=== PATIENT | female | born 1970 | race Caucasian/White ===

== ENCOUNTER 2022-09-13 13:00 | Emergency (ER) | payer OTHER, SELFPAY ==
--- NOTE | ~2022-09-13 | CT_ITS ---
EXAMINATION: CT ABDOMEN AND PELVIS WITHOUT CONTRAST CLINICAL INFORMATION: Abdominal pain COMPARISON: None available. TECHNIQUE: Multidetector volumetric imaging was performed from the superior aspect of the liver through the pubic symphysis. Sagittal and coronal reformatted images were obtained on the technologist's workstation. This CT examination was performed using dose optimization techniques as appropriate, variously including the following: *Automated exposure control *Adjustment of mA and/or kV according to patient size (this includes techniques or standardized protocols for targeted exams where dose is matched to indication/reason for exam; i.e. extremities or head) *Use of iterative reconstruction technique DLP: 397 mGy-cm FINDINGS: LUNG BASES: The visualized lung bases are unremarkable. LIVER, GALLBLADDER, AND BILIARY TREE: The liver is normal in size, shape, and attenuation. No focal hepatic lesion or biliary ductal dilatation is present. The gallbladder is unremarkable with no evidence of radiopaque gallstones, gallbladder wall thickening, or obvious pericholecystic inflammatory changes. PANCREAS: Unremarkable. SPLEEN: Unremarkable. ADRENAL GLANDS: Unremarkable. KIDNEYS AND URETERS: The kidneys are normal in size, shape, and attenuation. No hydronephrosis, hydroureter, or calculi seen. No perinephric stranding. BLADDER: Unremarkable. GASTROINTESTINAL TRACT: The small and large bowel are unremarkable. The appendix is nonvisualized. ABDOMINAL WALL: No significant hernia is appreciated. LYMPH NODES: Normal. VASCULAR: Unremarkable. PELVIC VISCERA: Unremarkable. OSSEOUS STRUCTURES: Unremarkable. CT/CT abdomen pelvis wo IV con IMPRESSION: No significant abnormality. Fleischner guidelines were followed.
[2022-09-13 13:27] LABS: MANUAL DIFF FLAG NO
[2022-09-13 13:29] LABS: Basophils Percent Auto 0.2 % (0-2); Eosinophils Absolute Auto 0.1 X10*3/uL (0.0-0.4); Eosinophils Percent Auto 0.5 % (0-4); Hematocrit 37.9 % (37.0-47.0); Hemoglobin 12.7 g/dl (12.0-16.0); Imm Gran Abs Auto 0.07 X10*3/uL (0.00-0.03); Imm Gran Pct Auto 0.5 % (0.0-0.4); Lymphocytes Absolute Auto 1.8 X10*3/uL (1.2-4.9); Lymphocytes Percent Auto 13.1 % (20-40); Mean Corpuscular HGB Conc 33.5 g/dl (31.0-35.0); Mean Corpuscular Hemoglobin 32.1 pg (27.0-33.0); Mean Corpuscular Volume 95.7 fL (80.0-98.0); Mean Platelet Volume 10.2 fL (9.4-12.3); Monocytes Absolute Auto 1.1 X10*3/uL (0.1-1.2); Monocytes Percent Auto 7.6 % (2-11); Neutrophils Percent Auto 78.1 % (45-73); Platelet Count 223 X10*3/uL (160-400); Red Blood Count 3.96 X10*6/uL (4.20-5.50); Red Cell Distribution Width 12.2 % (11.0-16.0)
[2022-09-13 13:41] VITALS: BP 135/87; PULSE 85; RESP 18; TEMP 36.7; O2SAT 98; BMI 21.6
--- NOTE | 2022-09-13 13:41 | ED_ITS ---
HPI - Abdominal Pain General Chief Complaint: Abdominal Pain <MANOJ Horvath - Last Filed: 09/13/22 19:35> Stated Complaint: Abd pain sent from urgent care <MANOJ Horvath - Last Filed: 09/13/22 19:35> Time Seen by Provider: 09/13/22 20:09 <MANOJ Horvath - Last Filed: 09/13/22 19:35> Source: patient, RN notes reviewed and old records reviewed <Collins Arevalo - Last Filed: 09/13/22 22:24> Mode of arrival: ambulatory <Collins Arevalo - Last Filed: 09/13/22 22:24> Limitations: no limitations <Collins Arevalo - Last Filed: 09/13/22 22:24> History of Present Illness HPI narrative: 52-year-old female presents for evaluation of abdominal pain. Patient reports that 3 days ago she had 1 or 2 episodes of vomiting. She states she developed severe left lower abdominal pain She reports diarrhea and there is bright red blood mixed in with the diarrhea Denies any history of colitis/diverticulitis. Her surgical history is significant only for a remote hysterectomy Currently her pain is a 10/10. Patient reports that she may have had fevers on Tuesday that she had hot flashes and chills but never took her temperature No other complaints or concerns at this time. <Collins Arevalo - Last Filed: 09/13/22 22:24> Related Data Home Medications: Previous Rx's Medication Instructions Recorded amoxicillin 875 mg-potassium 1 tab PO TID #21 tabs 09/13/22 clavulanate 125 mg tablet <MANOJ Horvath - Last Filed: 09/13/22 19:35> Allergies/Adverse Reactions: Allergies Allergy/AdvReac Type Severity Reaction Status Date / Time Sulfa (Sulfonamide Allergy Unknown UPSET Unverified 02/14/20 16:34 Antibiotics) STOMACH [SULFA (SULFONAMIDE ANTIBIOTICS)] <MANOJ Horvath - Last Filed: 09/13/22 19:35> Review of Systems Constitutional: Reports as per HPI, Reports chills, Reports fatigue, Reports fever(s) and Denies headache(s) <Collins Arevalo - Last Filed: 09/13/22 22:24> Denies headache(s) <Collins Arevalo - Last Filed: 09/13/22 22:24> Cardiovascular: Denies chest pain and Denies dyspnea <Collins Arevalo - Last Filed: 09/13/22 22:24> Respiratory: Denies cough and Denies dyspnea <Collins Arevalo - Last Filed: 09/13/22 22:24> Gastrointestinal: Reports abdominal pain, Reports hematochezia, Denies constipation, Reports diarrhea, Reports nausea, Reports vomiting and Denies hematemesis <Collins Arevalo - Last Filed: 09/13/22 22:24> Genitourinary: Denies dysuria <Collins Arevalo - Last Filed: 09/13/22 22:24> Denies headache(s) and Denies focal weakness <Collins Arevalo - Last Filed: 09/13/22 22:24> Endocrine: Reports fatigue <Collins Arevalo - Last Filed: 09/13/22 22:24> [facility] Social History Social History: Social History Smoked in Last 30 Days: Yes Use of substances other than those prescribed or required for medical reasons: No Advance Directives: No Advance Directives Information Provided: Yes <MANOJ Horvath - Last Filed: 09/13/22 19:35> Physical Exam ED Vital Signs: Vital Signs - 24 hr 09/13/22 13:41 09/13/22 19:50 Temperature 98.0 F 98.3 F Pulse Rate 85 60 Respiratory Rate 18 16 Blood Pressure 135/87 156/90 H Pulse Oximetry 98 96 Oxygen Delivery Method Room Air Room Air BMI result Body Mass Index 21.6 <MANOJ Horvath - Last Filed: 09/13/22 19:35> Vital Signs - 24 hr 09/13/22 13:41 09/13/22 19:50 Temperature 98.0 F 98.3 F Pulse Rate 85 60 Respiratory Rate 18 16 Blood Pressure 135/87 156/90 H Pulse Oximetry 98 96 Oxygen Delivery Method Room Air Room Air BMI result Body Mass Index 21.6 <Collins Arevalo - Last Filed: 09/13/22 22:24> Const General: healthy appearing, comfortable, no acute distress, alert and awake <Collins Arevalo - Last Filed: 09/13/22 22:24> Nutritional Appearance: well nourished <Collins - Last Filed: 09/13/22 22:24> Orientation/consciousness: patient oriented x3 <Collins Last Filed: 09/13/22 22:24> HENMT Head: Yes normocephalic and Yes atraumatic <Collins - Last Filed: 08/28 12/19 22:24> Throat: Yes posterior oropharynx normal < - Last Filed: 09/13/22 22:24> Eyes Eyelids: Yes eyelids normal < - Last Filed: 09/13/22 22:24> Conjunctivae: conjunctivae normal < - Last Filed: 09/13/22 22:24> Sclerae: sclerae normal < - Last Filed: 09/13/22 22:24> Corneas: corneas normal < - Last Filed: 09/13/22 22:24> Pupils: Equal, round and reactive pupils present < - Last Filed: 09/13/22 22:24> EOM: EOMs intact bilaterally <Collins - Last Filed: 09/13/22 22:24> Neck Neck: Yes full ROM <Collins Last Filed: 09/13/22 22:24> Resp Effort & Inspection: normal respiratory effort, able to speak in complete sentences, no audible wheezes and not labored <Collins - Last Filed: 09/13/22 22:24> Auscultation: clear to auscultation bilaterally < - Last Filed: 09/13/22 22:24> Cardio Rate: regular rate < - Last Filed: 09/13/22 22:24> Rhythm: regular rhythm < Last Filed: 09/13/22 22:24> GI Inspection: No distended < - Last Filed: 09/13/22 22:24> Palpation (GI): Soft to palpation, not firm, Tenderness to palpation present (GI) in the LLQ, Guarding due to palpation present (GI) (Guarding to left lower quadrant without rebound tenderness) in the LLQ and not rigid <Collins Arevalo - Last Filed: 09/13/22 22:24> Skin General skin exam: no rashes or lesions noted and elasticity normal <Collins SheldonHenry - Last Filed: 09/13/22 22:24> Neuro General: patient oriented x3 <Collins PitoBeltrami - Last Filed: 09/13/22 22:24> Cranial nerves: Yes Equal, round and reactive pupils present and Yes Bilaterally intact EOM present <Collins PitoHenry - Last Filed: 09/13/22 22:24> Cognition (Neuro): normal cognition <Collins O'Beltrami - Last Filed: 09/13/22 22:24> Extrem Other: Moving all extremities well without any obvious deformities <Collins SheldonHenry - Last Filed: 09/13/22 22:24> Course Course Course Narrative: RME - 52yo female presenting from urgent care for abdominal pain and rectal bleeding for 3 days. Patient stated she has the urge to have a bowel movement but only passes red blood. Endorses one episode of vomiting 3 days ago. Allergy to sulfa drugs. VSS in triage Plan: labs, UA <MANOJ Horvath - Last Filed: 09/13/22 19:35> Reevaluation(s) Reevaluation #1: patient reporting worsening lower abdominal pain CT abd/pelvis ordered <MANOJ Horvath - Last Filed: 09/13/22 19:35> Time: 19:35 <MANOJ Horvath - Last Filed: 09/13/22 19:35> Reevaluation #2: Patient's CT scan does not show any acute findings. However given the patient has a white count, left lower abdominal pain with bloody diarrhea, has still feels appropriate to treat for diverticulitis as her symptoms are very classic. She will follow-up with PCP and/or GI her symptoms persist after treatment. <Collnis Arevalo - Last Filed: 09/13/22 22:24> Time: 22:19 <Collins Arevalo - Last Filed: 09/13/22 22:24> Medical Decision Making Medical Decision Making MDM Narrative: [place] [id number]. Electrolytes are within normal limits, the patient is not clinically dehydrated. She has significant tenderness in left lower quadrant with reported bloody diarrhea. Most likely diverticulitis, CT scan is pending. Patient medicated with IV fluids, morphine, Zofran. <Collins Arevalo - Last Filed: 09/13/22 22:24> Differential Diagnosis Diverticulitis Complicated diverticulitis Bowel perforation Colitis Abdominal pain Gastroenteritis <Collins Arevalo - Last Filed: 09/13/22 22:24> Lab Data Result Diagrams: 09/13/22 13:21 09/13/22 13:21 <MANOJ Horvath - Last Filed: 09/13/22 19:35> Labs: Lab Results 09/13/22 09/13/22 09/13/22 Range/Units 13:21 13:21 15:39 WBC 14.0 H (4.8-10.8) X10*3/uL RBC 3.96 L (4.20-5.50) X10*6/uL Hgb 12.7 (12.0-16.0) g/dl Hct 37.9 (37.0-47.0) % MCV 95.7 (80.0-98.0) fL MCH 32.1 (27.0-33.0) pg MCHC 33.5 (31.0-35.0) g/dl RDW 12.2 (11.0-16.0) % Plt Count 223 (160-400) X10*3/uL MPV 10.2 (9.4-12.3) fL Immature Gran % (Auto) 0.5 H (0.0-0.4) % Neut % (Auto) 78.1 H (45-73) % Lymph % (Auto) 13.1 L (20-40) % [place] % (Auto) 7.6 (2-11) % Eos % (Auto) 0.5 (0-4) % Baso % (Auto) 0.2 (0-2) % Lymph # (Auto) 1.8 (1.2-4.9) X10*3/uL [place] # (Auto) 1.1 (0.1-1.2) X10*3/uL Eos # (Auto) 0.1 (0.0-0.4) X10*3/uL Baso # (Auto) 0.0 (0.0-0.2) X10*3/uL Abs Immat Gran (auto) 0.07 H (0.00-0.03) X10*3/uL Absolute Neuts (auto) 11.0 H (2.0-8.3) x10*3/uL Absolute Nucleated RBC 0.000 (0.0-0.012) X10*3/uL Nucleated RBC % (auto) 0.0 (0.0-0.2) /100WBC Sodium 137 (135-145) mmol/L Potassium 4.2 (3.3-5.1) mmol/L Chloride 103 (96-108) mmol/L Carbon Dioxide 24 (22-29) mmol/L Anion Gap 14 (12-20) BUN 11 (9-16) mg/dL Creatinine 0.70 (0.5-1.4) mg/dL Estim Creat Clear Calc 82.6 Estimated GFR > 60 Random Glucose 106 (60-115) mg/dL Calcium 9.1 (8.4-10.2) mg/dL Magnesium 2.0 (1.6-2.6) mg/dL Total Bilirubin 0.6 (0.0-1.0) mg/dL Direct Bilirubin 0.2 (0.0-0.5) mg/dL AST 18 (5-31) U/L ALT 13 (0-31) U/L Alkaline Phosphatase 62 (39-117) U/L Total Protein 6.7 (6.5-8.0) g/dL Albumin 4.1 (3.5-5.0) g/dL Lipase 22 (8-78) U/L Urine Color Dark Yellow Urine Appearance Cloudy Urine pH 5.5 (5.0-9.0) Ur Specific [place] >= 1.030 H (1.005-1.025) Urine Protein 30 (1+) H (Neg-Trace) mg/dL Urine Glucose (UA) Negative (Negative) mg/dL Urine Ketones Trace (Negative) mg/dL Urine Blood Negative (Negative) Urine Nitrite Negative (Negative) Ur Leukocyte Esterase Trace H (Negative) Urine RBC 3-5 H (0-2) /HPF Urine WBC 0-5 (0-5) /HPF Ur Squamous Epith Cells 11-20 (0-2) /HPF Urine Bacteria 1+ (None Seen) Hyaline Casts >20 (0-2) /LPF <MANOJ Horvath - Last Filed: 09/13/22 19:35> Lab Results 09/13/22 09/13/22 09/13/22 Range/Units 13:21 13:21 15:39 WBC 14.0 H (4.8-10.8) X10*3/uL RBC 3.96 L (4.20-5.50) X10*6/uL Hgb 12.7 (12.0-16.0) g/dl Hct 37.9 (37.0-47.0) % MCV 95.7 (80.0-98.0) fL MCH 32.1 (27.0-33.0) pg MCHC 33.5 (31.0-35.0) g/dl RDW 12.2 (11.0-16.0) % Plt Count 223 (160-400) X10*3/uL MPV 10.2 (9.4-12.3) fL Immature Gran % (Auto) 0.5 H (0.0-0.4) % Neut % (Auto) 78.1 H (45-73) % Lymph % (Auto) 13.1 L (20-40) % [place] % (Auto) 7.6 (2-11) % Eos % (Auto) 0.5 (0-4) % Baso % (Auto) 0.2 (0-2) % Lymph # (Auto) 1.8 (1.2-4.9) X10*3/uL [place] # (Auto) 1.1 (0.1-1.2) X10*3/uL Eos # (Auto) 0.1 (0.0-0.4) X10*3/uL Baso # (Auto) 0.0 (0.0-0.2) X10*3/uL Abs Immat Gran (auto) 0.07 H (0.00-0.03) X10*3/uL Absolute Neuts (auto) 11.0 H (2.0-8.3) x10*3/uL Absolute Nucleated RBC 0.000 (0.0-0.012) X10*3/uL Nucleated RBC % (auto) 0.0 (0.0-0.2) /100WBC Sodium 137 (135-145) mmol/L Potassium 4.2 (3.3-5.1) mmol/L Chloride 103 (96-108) mmol/L Carbon Dioxide 24 (22-29) mmol/L Anion Gap 14 (12-20) BUN 11 (9-16) mg/dL Creatinine 0.70 (0.5-1.4) mg/dL Estim Creat Clear Calc 82.6 Estimated GFR > 60 Random Glucose 106 (60-115) mg/dL Calcium 9.1 (8.4-10.2) mg/dL Magnesium 2.0 (1.6-2.6) mg/dL Total Bilirubin 0.6 (0.0-1.0) mg/dL Direct Bilirubin 0.2 (0.0-0.5) mg/dL AST 18 (5-31) U/L ALT 13 (0-31) U/L Alkaline Phosphatase 62 (39-117) U/L Total Protein 6.7 (6.5-8.0) g/dL Albumin 4.1 (3.5-5.0) g/dL Lipase 22 (8-78) U/L Urine Color Dark Yellow Urine Appearance Cloudy Urine pH 5.5 (5.0-9.0) Ur Specific [place] >= 1.030 H (1.005-1.025) Urine Protein 30 (1+) H (Neg-Trace) mg/dL Urine Glucose (UA) Negative (Negative) mg/dL Urine Ketones Trace (Negative) mg/dL Urine Blood Negative (Negative) Urine Nitrite Negative (Negative) Ur Leukocyte Esterase Trace H (Negative) Urine RBC 3-5 H (0-2) /HPF Urine WBC 0-5 (0-5) /HPF Ur Squamous Epith Cells 11-20 (0-2) /HPF Urine Bacteria 1+ (None Seen) Hyaline Casts >20 (0-2) /LPF <Collins Arevalo - Last Filed: 09/13/22 22:24> Medications Administered Discontinued Medications Generic Name Dose Route Start Last Admin Trade Name Freq PRN Reason Stop Dose Admin Sodium Chloride 1,000 mls @ 999 mls/hr 09/13/22 20:30 09/13/22 20:47 Ns IV 09/13/22 21:30 999 mls/hr .Q1H1M DC Administration Morphine Sulfate 4 mg 09/13/22 20:24 09/13/22 20:47 Morphine Sulfate 4 Mg/Ml Cartridge IVPUSH 09/13/22 20:25 4 mg ONCE ONE Administration Protocol Ondansetron HCl 4 mg 09/13/22 20:24 09/13/22 20:47 Ondansetron Hcl 4 Mg/2 Ml Vial IVPUSH 09/13/22 20:25 4 mg ONCE ONE Administration <MANOJ Horvath - Last Filed: 09/13/22 19:35> Medications Administered Discontinued Medications Generic Name Dose Route Start Last Admin Trade Name Giles PRN Reason Stop Dose Admin Sodium Chloride 1,000 mls @ 999 mls/hr 09/13/22 20:30 09/13/22 20:47 Ns IV 09/13/22 21:30 999 mls/hr .Q1H1M DC Administration Morphine Sulfate 4 mg 09/13/22 20:24 09/13/22 20:47 Morphine Sulfate 4 Mg/Ml Cartridge IVPUSH 09/13/22 20:25 4 mg ONCE ONE Administration Protocol Ondansetron HCl 4 mg 09/13/22 20:24 09/13/22 20:47 Ondansetron Hcl 4 Mg/2 Ml Vial IVPUSH 09/13/22 20:25 4 mg ONCE ONE Administration <Collins Arevalo - Last Filed: 09/13/22 22:24> Discharge Plan Discharge Clinical Impression: Abdominal pain <MANOJ Horvath - Last Filed: 09/13/22 19:35> Patient Disposition: Home, Self-Care <MANOJ Horvath - Last Filed: 09/13/22 19:35> Instructions: Diverticulitis (ED) <MANOJ Horvath - Last Filed: 09/13/22 19:35> Additional Instructions: Your CT scan did not show any obvious evidence of diverticulitis. Given her significant pain, elevated white blood cell count and bloody diarrhea I feels appropriate to treat you regardless Take the Augmentin twice daily for the next 7 days Continue on a liquid diet for least the next 2 days or until her pain resolves Follow-up with your primary doctor or return for any new or worsening symptoms <MANOJ Horvath - Last Filed: 09/13/22 19:35> Prescriptions: New amoxicillin-pot clavulanate 875-125 mg tablet 1 tab PO TID Qty: 21 0RF <MANOJ Horvath - Last Filed: 09/13/22 19:35>
[2022-09-13 13:48] LABS: Alanine Aminotransferase 13 U/L (0-31); Albumin Level 4.1 g/dL (3.5-5.0); Alkaline Phosphatase 62 U/L (39-117); Anion Gap 14 (12-20); Aspartate Amino Transferase 18 U/L (5-31); Bilirubin Direct 0.2 mg/dL (0.0-0.5); Bilirubin Total 0.6 mg/dL (0.0-1.0); Blood Urea Nitrogen 11 mg/dL (9-16); Calcium 9.1 mg/dL (8.4-10.2); Carbon Dioxide 24 mmol/L (22-29); Chloride 103 mmol/L (96-108); Creatinine Clr Calc Pharmacy 82.6; Estimated Glomerular Filt Rate > 60; Glucose Random 106 mg/dL (60-115); Lipase 22 U/L (8-78); Potassium 4.2 mmol/L (3.3-5.1); Sodium 137 mmol/L (135-145); Total Protein 6.7 g/dL (6.5-8.0)
[2022-09-13 15:59] LABS: Appearance Urine Cloudy; Color Urine Dark Yellow; Glucose Urine UA Negative (Negative); Leukocyte Esterase Urine Trace (Negative); Nitrite Urine Negative (Negative); PH 5.5 (5.0-9.0); Specific Gravity - Urine >= 1.030 (1.005-1.025); UMIC TRIGGER UACC YES; Urine Blood Negative (Negative); Urine Ketones Trace mg/dL (Negative); Urine Protein 30 (1+) mg/dL (Neg-Trace)
[2022-09-13 16:18] LABS: Bacteria Urine 1+ (None Seen); Hyaline Casts Urine >20 /LPF (0-2); WBC Urine 0-5 /HPF (0-5)
[2022-09-13 19:50] VITALS: BP 156/90; PULSE 60; RESP 16; TEMP 36.8; O2SAT 96
[2022-09-13] MEDS: Morphine Sulfate 4 MG/ML CARTRIDGE IVPUSH (20:47)
[2022-09-13] MEDS: ondansetron HCL 4 MG/2 ML VIAL IVPUSH (20:47)
[2022-09-13] MEDS: 0.9 % Sodium Chloride 1,000 ML 999 ML IV (20:47)
[2022-09-13] MEDS: Amoxicillin/Potassium Clav 875 MG TABLET PO (22:40)
== END 2022-09-13 22:49 | disposition home or self-care (01) ==
PROVIDERS: Physician Assistant; Emergency Provider Emergency Medicine; PCP Internal Medicine
DX: R10.32 Left lower quadrant pain (principal)
CPT/HCPCS: 36415; 74176; 80048; 80076; 81001; 81003; 83690; 83735; 85025; 96361; 96374; 96375; 99284; J2270; J2405

== ENCOUNTER 2025-01-22 08:45 | Outpatient (AMB) | payer OTHER, SELFPAY ==
--- NOTE | 2025-01-22 08:58 | A.OFFVIS_ITS ---
Intake Visit Reasons: BOTOX 200U Allergies Sulfa (Sulfonamide Antibiotics) (SULFA (SULFONAMIDE ANTIBIOTICS)) Allergy (Unknown, Unverified 02/14/20 16:34) UPSET STOMACH Medication List - Last Reconciled 01/22/25 by Juan C Leach MD lisinopril 20 mg PO DAILY loratadine 10 mg PO DAILY onabotulinumtoxinA (Botox) 200 units IM [id number] oxcarbazepine 900 mg PO BEDTIME rizatriptan 10 mg PO PRN sumatriptan succinate 100 mg PO Q2-4H PRN tizanidine 4 mg PO BEDTIME PRN HPI Comments Details: She is here for 3 monthly Botox injection for chronic migraine. She has a history of migraines starting her on age 10. Most of the time on the left side or on the periorbital area, going to the back of the skull base. She may get a visual aura. Lites appear to get bright for about 30 min. before some of the headaches. The headache can be dolled throbbing, sharp in quality and frequently she'll get nausea with rare vomiting photosensitivity and slight noise sensitivity. It doesn't change with head movement or activity. Sometimes she also gets lightheaded. In the past she's been treated with sumatriptan Zomig, amitriptyline, topiramate, valproate, propranolol without benefit. She uses a combination of Maxalt and sumatriptan for rescue therapy using sumatriptan at night and Maxalt during the day. She's been on Botox treatments for about 15 years he and has noted day. 50% reduction by taking the Botox. Since starting Botox a headache frequency is down to about 9-10 a month with the severity of 6 on a scale of 10. Currently , her Sumatriptan works for her 6-7 migraines a month with Botox. [facility], [facility] Medical History (Updated 01/22/25 @ 09:21 by Juan C Leach MD) Chronic migraine without aura Review of Systems Const Details: Sleep:? Difficulty getting to sleepdenies.? Difficulty maintaining sleepdenies?.? Urge to move legsdenies.? Teeth grindingadmits.? Shouting or Kicking during sleep admits.? Abnormal behavior during sleepadmits.? Excessive sleepadmits.? Snoring denies.? Daytime sleepinessdenies. ???General/Constitutional:? Change in appetitedenies.? Chillsdenies.? Fatigueadmits.? Feverdenies.? Weight gaindenies.? Weight lossdenies. ???Ophthalmologic:? Blurred visionadmits.? Diminished visual acuitydenies. ???ENT:? Stuffinessadmits.? Decreased hearingdenies.? Dry mouthdenies.? Ear paindenies.? Nosebleeddenies.? Ringing in the earsadmits.? Sinus paindenies.? Sore throat denies.? Swollen glandsdenies. ???Endocrine:? Cold intolerancedenies.? Excessive thirstdenies.? Frequent urinationdenies.? Heat intolerancedenies. ???Respiratory:? Shortness of breathdenies.? Chest paindenies.? Coughdenies. ???Breast:? Breast lumpdenies.? Nipple dischargedenies. ???Cardiovascular:? Chest pain at restdenies.? Chest pain with exertiondenies.? Claudicationdenies .? Dizzinessdenies.? Fluid accumulation in the legsdenies.? Irregular heartbeat denies.? Palpitationsadmits. ???Gastrointestinal:? Abdominal paindenies.? Constipationadmits.? Diarrheaadmits.? Difficulty swallowingdenies.? Heartburnadmits.? Nauseadenies.? Rectal bleedingdenies. ???Hematology:? Easy bruisingadmits.? Prolonged bleedingdenies. ???Genitourinary:? Frequent urinationadmits.? Urgencyadmits.? Incontinencedenies.? Erectile Dysfunctiondenies. ???Musculoskeletal:? Neck painadmits.? Back painadmits.? Muscle achesadmits.? Painful jointsadmits.? Sciaticadenies.? Weaknessdenies. ???Podiatric:? Difficulty walkingdenies.? Foot numbnessdenies. ???Neurologic:? Difficulty swallowingdenies.? Balance difficultyadmits.? Coordinationnormal.? Difficulty speakingadmits.? Dizzinessadmits.? Faintingdenies.? Gait abnormality denies.? Headachethat is chronic.? Loss of strengthdenies.? Loss of use of extremitydenies.? Low back paindenies.? Memory lossadmits.? Seizuresdenies.? Ticsdenies.? Tingling/Numbnessdenies.? Transient loss of visiondenies.? Tremor denies. ???Psychiatric:? Anxietyadmits.? Auditory/visual hallucinationsdenies.? Delusionsdenies.? Depressed moodadmits.? Stressorsadmits.? Substance abusedenies.? Suicidal thoughtsdenies. Physical Exam Neuro Other: Neurological: Abnormal neurological findings:??none.?Mental Status:??alert and oriented X 3,?Normal attention, orientation, memory and affect.?Cranial Nerves:??Pupils are equal, round and reactive to light. Fundoscopy shows normal disc bilaterally. External occular muscles are intact. Visual jefferson are full, no ptosis. Face is symmetrical, no facial weakness or droop. Facial sensations are normal. Tongue protrudes in midline. Palate elevates symmetrically. Shoulder shrugging is normal..?Motor Examination:??Normal muscle tone, bulk and strength,?No atrophy or fasciculations,?No drift of the extended upper extremities,?Deep tendon reflexes are 2+?,?Plantars are flexor?.?Straight Leg Raising:??90 degrees.?Sensory Exam:??Normal light touch, temperature, pinprick, vibration and joint-position sensations?,?Rhomberg sign is absent.?Coordination:??no ataxia,?no titubation,?uasmun-kf-lcew, fdvr-pcex-twfd test and rapid alternating movements were normal.?Gait Exam:??Within normal limits.?Cerebellar Signs:??Hiedxi-md-jqbi and gool-ny-gczm is normal,?no dysdiadochokinesia?.?Extrapyramidal System:??No tremor, rigidity with normal facial expressions,?No bradykinesia, no bradyphrenia. Normal arm swing and posture. No propulsion or retropulsion.?Speech:??Normal,?no dysphasia or dysarthria..? Mini Mental Status Exam: Level of Consciousness:??Alert.?Orientation:??Knows correct year, month, date, day and season,?Knows correct city, county and state. Knows correct location and floor.?Registration:??Able to register 3 objects.?Attention:??Serial 7's perfo rmed accurately.?Recall:??Able to recall 3 out of 3 objects.?Language:??Normal spontaneous speech, fluency, repetition,naming, comprehension, reading and writing.?Total Score:??30/30.? Office Procedures Botulinum toxin Injection Details: Botulinum toxin: Consent:?After informed consent was obtained explaining risks, benefits, side- effects and alternatives, under asepctic precautions, the following areas were prepped and injected according to the following protocol. Prep: 200 units?Botulinum Toxin, lot [id number] , Exp. : , serial # [id number] was reconstituted in the usual manner with preservative-free normal saline. Muscles & Units Injected:?200 units of Botox were injected using 4-5 units in each site in the Procerus, Rubber Production Machine Operator, 4 sites in the frontalis muscle bilaterally, 4 sites in the temporalis muscles bilaterally, 2 sites in the o ccipitalis bilaterally , and paraspinal cervical muscles and the bilateral ?trapezius.? The patient tolerated the procedure well.?_. Post-Procedure?: The patient tolerated the procedure well. There was no blood loss or adverse effect. The patient will make a follow-up appointment in 3-4 weeks. 39965 - Migraine (Botulinum toxin: Consent After informed consent was obtained explaining risks, benefits, side-effects and alternatives, under aspectic precautions, the following areas were prepped and injected according to the following protocol. Prep 200 units Botulinum Toxin lot #[id number] , serial number [id number]) Procedure code (CPT) selection complete Assessment & Plan Assessment & Plan (1) Chronic migraine without aura: Code(s): G43.709 - Chronic migraine without aura, not intractable, without status migrainosus Category: Medical Plan Continue current meds. Add Emgality 120mg inj q4 weeks Medications: New sumatriptan succinate do not exceed 2 doses per 24 hrs 100 mg PO Q2-4H PRN 9 tabs 6RF migraine headache 30 days galcanezumab-gnlm (Emgality Pen) 120 mg subcut QMONTH 1 mL 6RF 28 days Coding Level of Care Code Est Pt Level 4 (91164) Diagnoses Chronic migraine without aura G43.709 CPT Codes Botox Injection - Botox 3: 06004 - Migraine ([id number])
--- OUTSIDE RECORDS SUMMARY | 2025-01-22 09:00 | XMS_ITS ---
Author Name [facility] Organization Unknown Care Team Organization Name Specialty Phone Email Start Date End Da te [facility] Javier Hahn DO Primary Care 10/04/202212/28
--- OUTSIDE RECORDS SUMMARY | 2025-01-22 09:00 | XMS_ITS | Clinical Summary ---
Author Organization [address] Address [address] [facility] [place] [address] Phone Care Team Providers Care Handkerchief Folder Name Role Phone Hugo Stout MD Primary Care Provider [phone] Allergies Active Allergy Reactions Criticality Noted Date Comments Divalproex Rash 03/20/2012 Face- inflamed itchy papules on face Sulfa (Sulfonamide Antibiotics) 01/02/2006 Medications ALPRAZolam (XANAX) 0.5 mg tablet Take 1 Tab by mouth 4 times daily as needed for Anxiety. 03/14/20 19 Active cetirizine (ZyrTEC) 10 mg tablet Take 1 tablet (10 mg total) by mouth 1 (one) time each day. 09/10/19 21 Active estazolam (PROSOM) 2 mg tablet Take 1 Tab by mouth at bedtime for 30 days. 03/14/20 19 Active estradioL (ESTRACE) 1 mg tablet 05/23/20 19 Active fluticasone propionate (FLONASE) 50 mcg/actuation nasal spray 1 [place] by Nasal route 2 Times Daily. 01/01/20 23 Active SUMAtriptan (IMITREX) 50 mg tablet Take 50 mg by mouth daily as needed. May repeat dose once after 2 hours, if needed. Active sertraline (ZOLOFT) 100 mg tablet Take 2 tablets (200 mg total) by mouth 1 (one) time each day. 12/28/19 23 Active rizatriptan (MAXALT-CURTAIN SUPERVISOR) 10 mg disintegrating tablet 1 tab PO daily PRN migraine 09/09/19 23 Active OXcarbazepine (TRILEPTAL) 300 mg tablet Take 3 Tabs by mouth at bedtime. 03/14/20 19 Active gabapentin (NEURONTIN) 300 mg capsule Active sodium chloride (OCEAN) 0.65 % nasal spray Administer 1 spray into each nostril if needed for congestion. 15 mL 2 04/04/20 24 Active clonazePAM (KlonoPIN) 0.5 mg tablet TAKE 1/2 TABLET BY MOUTH 4 TIMES A DAY NEEDED FOR ANXIETY Active lisinopriL (PRINIVIL,ZESTRIL ) 20 mg tablet Take 1 tablet (20 mg total) by mouth 1 (one) time each day. 90 tablet 10/12/19 25 Active loratadine (CLARITIN) 10 mg tablet TAKE 1 TABLET BY MOUTH EVERY DAY 90 tablet 01/04/20 25 Active loratadine (CLARITIN) 10 mg tablet TAKE 1 TABLET BY MOUTH 1 TIME EACH DAY. 90 tablet 1 05/05/20 24 2024 Discontinued Active Problems Problem Noted Date Diagnosed Date Hypercholesterolemia 04/04/2024 COVID-19 virus infection 10/17/2021 Overview (02/28/2024): 5.19.22 Essential hypertension 06/05/2019 Overview (02/28/2024): On oral HRT Bipolar affective disorder in remission (CMS/[facility] V24) 12/13/2018 Low back pain 12/10/2017 Overview (02/28/2024): L5/S1 microdiscectomy by Dr. Elliott Ordonez 2014 Obsessive-compulsive disorder 04/09/2013 Carpal tunnel syndrome 05/18/2006 Cervicalgia 05/18/2006 Diverticulitis of colon without hemorrhage 05/18 Migraine 05/18/2006 Overview (02/28/2024): Receiving Botox injections per Dr. Montoya (November 2022) Immunizations Name Administration Dates Next Due Influenza Quadravalent, MDCK , 0.5ml, preservative free (Flucelvax) 6mo and older 03/03/2021 Influenza Quadravalent, MDCK , 0.5ml, with preservative (Flucelvax) 6mo and older 02/02/2018 Influenza trivalent, with pr eservative (Fluzone; Afluria) 6mo and older 02/27/2023,03/02/2022,02/22/2014 Influenza, Unspecified 02/27/2019 Pfizer SARS-CoV-2 COVID-19, mRNA, LNP-S, preservative free 05/18/2021 Td Tetanus diptheria (Tdvax) 7yo and older 05/18 Tdap Tetanus diptheria acell ular pertussis (Boostrix; Adacel) 7yo and older 06/05/2019,05/18/2006 Zoster recombinant (Shingrix ) 19yo and older 12/04/2020,08/09/2020 Surgical History Surgery Date Site/Laterality Comments HYSTERECTOMY PROCEDURE: HISTORICAL HYSTERECTOMY; COMMENT: ELLEN BSO CARPAL TUNNEL RELEASE PROCEDURE: AL NEUROPLASTY &/TRANSPOS MEDIAN NRV CARPAL TUNNE COLONOSCOPY PROCEDURE: HISTORICAL COLONOSCOPY; COMMENT: normal mar 2011 dr vargas OTHER SURGICAL HISTORY 10/22/2014 PROCEDURE: AL NJX AA&/STRD TFRML EPI LUMBAR/SACRAL 1 LEVEL; COMMENT: STEROID INJ; [facility] OTHER SURGICAL HISTORY PROCEDURE: DISKECTOMY LUMBAR SINGLE SP; COMMENT: L5/S1, Dr. Ordonez [facility], 2014 OTHER SURGICAL HISTORY PROCEDURE: DISKECTOMY LUMBAR ADDTNL SP; COMMENT: 2014, [facility], Dr. Elliott Ordonez. L5/S1 Medical History Medical History Date Comments Carpal tunnel syndrome 05/18/2006 DX:Carpal tunnel syndrome Migraine with aura, without mention of intractable migraine without mention of status migrainosus 05/18/2006 DX:Migraine with aura, witho ut mention of intractable migraine without mention of status migrainosus Diverticulitis of colon (wit hout mention of hemorrhage)(562.11) 05/18/2006 DX:Diverticulitis of co buddy (without mention of hemorrhage)(562.11) Cervicalgia 05/18/2006 DX:Cervicalgia Adjustment disorder with depressed mood 05/18/20 DX:Adjustment disorder with depressed mood COVID-19 virus infection 10/17/2021 DX:COVI D-19 virus infection; COMMENT: 10.15.21 Family History Relation Name Status Comments Brother 1 Alive healthy Brother 2 (Age 42) [place] Father Alive Crohn's and hea rt disease, hypertension Maternal Grandfather prostat e cancer and NH Maternal Grandmother diabete s, cva Mother Alive diabetes, hyper tension, [place] Paternal Grandmother heart d isease Son Alive healthy Social History Tobacco Use Types Packs/Day Years Used Date Smoking Tobacco: Light Smoker Cigarettes Last attempted t o quit: 10/18/2011 Smokeless Tobacco: Never Tobacco Cessation:Ready to Q uit: Not Asked; Counseling Given: Not Answered Alcohol Use Standard Drinks/Week Comments Yes 0 (1 standard drink = 0.6 oz pur e alcohol) Housing Instability Answer Date Recorde d Are you worried that in the next 2 months you may not have stable housing? No 06/29/2024 Food Access & Nutrition Answer Date Rec orded Do you have access to a vari ety of food including fruits and vegetables? Yes 06/29/2024 Access to Healthcare Answer Date Record ed Within the last 3 months, rocky zacarias many times did you visit the emergency department for your medical care? 0 06/29/2024 Health Literacy Answer Date Recorded How often do you need to hav e someone help you when you read instructions, pamphlets, or other written material from your doctor or pharmacy? Never 06/29/2024 Caregiver: How often do you need to have someone help you when you read instructions, pamphlets, or other written material from your doctor or pharmacy? Not on file 06/29/2024 Financial Risk Answer Date Recorded How hard is it for you to pa y for the very basics like food, housing, medical care, and air conditioning / heating? Not very hard 06/29/2024 Transportation Answer Date Recorded Has the lack of transportati on kept you from meetings, work, or from getting things needed for daily living? No Has the lack of transportati on kept you from medical appointments or from getting medications? No 06/29/2024 Social Isolation Answer Date Recorded How often do you feel lonely or isolated from those around you? Sometimes 06/29/2024 Food Risk Answer Date Recorded Within the past 12 months we worried whether our food would run out before we got money to buy more. Never true 06/29/2024 Within the past 12 months th e food we bought just didn't last and we didn't have money to get more. Never true 06/29/2024 Dependent Care Answer Date Recorded Do you need help finding or paying for care for your loved ones. For example, child care provider or elderly care for an older adult? No 06/29/2024 Education Answer Date Recorded Do you think completing more education or training, like finishing a GED, going to college, or learning a trade, would be helpful for you? No 06/29/2024 Employment and Income Answer Date Recor ded During the last four weeks, have you been actively looking for work? Patient declined 06/29/2024 Living Situation Answer Date Recorded What is your living situation? 0 06/29/2024 Comments No Sex and Gender Information Value Date Recorded Sex Assigned at Not on file Legal Sex Female 9:34 PM EST Gender Identity Not on file Sexual Orientation Not on file Obstetrics History Para Term AB IAB SAB Ectopic Multiple Livin g Live Births 1 Date Outcome GA Total Labor Labor/2nd/3rd Weight Sex Type Anes PTL Georgette A1 A5 Name Clin Term Last Filed Vital Signs Vital Sign Reading Time Taken Comments Blood Pressure 120/88 10/11/2024 4:21 PM EDT Pulse 76 10/11/2024 4:21 PM EDT Temperature 36.5 C (97.7 F) 10/11/2024 4:21 PM EDT Respiratory Rate 16 10/11/2024 4:21 PM EDT Oxygen Saturation - - Inhaled Oxygen Concentration - - Weight 61.7 kg (136 lb) 10/11/2024 4:21 PM EDT Height 162.6 cm (5' 4 ) 10/11/2024 4:21 PM EDT Body Mass Index 23.34 10/11/2024 4:21 PM EDT Plan of Treatment Upcoming Encounters Date Type Department Care Team (Late st Contact Info) Description 05/01/2025 4:30 PM EST Office Visit Adult Medicine [facility] [address] [place] [address] Hugo Stout MD [address] [facility] [place] [address] Health Maintenance Due Date Last Done Comments Hepatitis B Vaccines (1 of 3 - 19+ 3-dose series) 02/20/1987 Pneumococcal Vaccine: 50+ Years (1 of 2 - PCV) 02/20/1987 HIV Screening 05/08/2022 COVID-19 Vaccine (4 - 2023- season) 2024 05/18/2021, 10/14/2020, 09/23/2020 Hypertension/CHF/CAD Annual BMP Blood Test 07/04/2024 07/04/2023 Influenza Vaccine (#1) 2025 , 03/02/2022, 03/03/2021, Additional history exists Social Influencers of Health Screening 06/29/2025 06/29/2024 Breast Cancer Screening 06/06/2026 06/06/19, 05/15/2024, 05/06/2019 Cholesterol Screening (Lipid Panel) 04/10/2029 04/10/2024, 07/04/2023 DTaP,Tdap,and Td Vaccines (4 - Td or Tdap) 06/05/2029 06/05/2019, 05/18/2006, 05/18/2006 Colorectal Cancer Screening: Colonoscopy 09/09/2030 09/09/2020 Zoster Vaccines Completed 12/04/2020, 08/09/2020 Hepatitis C Screening Completed 03/21/2021 Depression Screening Completed 06/29/2024 HIB Vaccines Aged Out No longer eligi ble based on patient's age to complete this topic HPV Vaccines Aged Out No longer eligi ble based on patient's age to complete this topic Hepatitis A Vaccines Aged Out No long er eligible based on patient's age to complete this topic IPV Vaccines Aged Out No longer eligi ble based on patient's age to complete this topic MMR Vaccines Aged Out No longer eligi ble based on patient's age to complete this topic Meningococcal ACWY Vaccine Aged Out N o longer eligible based on patient's age to complete this topic Meningococcal B Vaccine Aged Out No l onger eligible based on patient's age to complete this topic RSV Immunization Patients Under 20 months Aged Out No longer eligible based on patient's age to complete this topic Varicella Vaccines Aged Out No longer eligible based on patient's age to complete this topic Procedures Procedure Name Priority Date/Time Associated Diagnosis Comments MG MAMMO DIGITAL DIAGNOSTIC W SERAFIN RIGHT Routine 06/06/2024 9:29 AM EST Abnormal mammogram LIPID PANEL WITH REFLEX TO DIRECT LDL Routine 04/10/2024 8:38 AM EST Hypercholesterolemi a ANNUAL BMP BLOOD TEST Routine 07/04/2023 HEPATITIS C SCREENING Routine 03/21/2021 COLONOSCOPY Routine 09/09/2020 from Last 3 Months or Most Recently Relevant to Health Maintenance Results * MG Mammo Digital Diagnostic w Serafin Right (06/06/2024 9:29 AM EST) Anatomical Region Laterality Modality Breast Right Mammography 06/06/2024 9:48 AM EST Impressions 06/06/2024 10:02 AM EST 1. No mammographic evidence of malignancy 2. Heterogeneously dense Findings and recommendations were conveyed to the patient. BI-RADS CATEGORY: 2 - BENIGN RECOMMENDATION: Return to annual mammography. Return to annual mammography. Mammo Location: [place] [facility], [address] [place] [address], [id number], . -------- FINAL REPORT -------- Dictated By: Omkar Whitman Dictated Date: 06/06/2024 09:48 ET Assigned Physician: Omkar Whitman Reviewed and Electronically Signed By: Omkar Whitman Signed Date: 06/06/2024 10:02 ET Workstation ID: [id number] Transcribed By: Self Edit Transcribed Date: 06/06/2024 09:48 ET Narrative 06/06/2024 10:02 AM EST RIGHTDIGITAL DIAGNOSTIC 3D MAMMOGRAPHY HISTORY: Workup for retroareolar focal asymmetry COMPARISON: Right breast mammogram from 05/15/2024 Technique: Right breast CC and MLO 3-D FINDINGS: Right breast retroareolar focal asymmetry becomes equal in density on spot compression and is consistent with benign summation of fibroglandular tissue. Sonographic evaluation demonstrates no focal abnormality BREAST DENSITY: C - The breasts are heterogeneously dense which may obscure small masses. EXAM: RIGHT BREAST TARGETED ULTRASOUND EVALUATION HISTORY: Workup for retroareolar focal asymmetry TECHNIQUE: Ultrasonographic examination is performed using a linear array transducer. Targeted right breast ultrasound in the retroareolar region to evaluate for mammographic finding. Real-time sonographic scanning was also performed by the radiologist FINDINGS: In the retroareolar region, no sonographic evidence of malignancy or other focal abnormalities were identified at the right breast in area of mammographic concern Procedure Note Omkar Whitman MD - 06/06/2024 RIGHTDIGITAL DIAGNOSTIC 3D MAMMOGRAPHY HISTORY: Workup for retroareolar focal asymmetry COMPARISON: Right breast mammogram from 05/15/2024 Technique: Right breast CC and MLO 3-D FINDINGS: Right breast retroareolar focal asymmetry becomes equal in density on spotcompression and is consistent with benign summation of fibroglandulartissue. Sonographic evaluation demonstrates no focal abnormality BREAST DENSITY: C - The breasts are heterogeneously dense which mayobscure small masses. EXAM: RIGHT BREAST TARGETED ULTRASOUND EVALUATION HISTORY: Workup for retroareolar focal asymmetry TECHNIQUE: Ultrasonographic examination is performed using a linear arraytransducer. Targeted right breast ultrasound in the retroareolar region toevaluate for mammographic finding. Real-time sonographic scanning was alsoperformed by the radiologist FINDINGS: In the retroareolar region, no sonographic evidence of malignancy or otherfocal abnormalities were identified at the right breast in area ofmammographic concern IMPRESSION: 1. No mammographic evidence of malignancy 2. Heterogeneously dense Findings and recommendations were conveyed to the patient. BI-RADS CATEGORY: 2 - BENIGN RECOMMENDATION: Return to annual mammography. Return to annual mammography. Mammo Location: [facility], [address] [place] [address], [phone], . -------- FINAL REPORT -------- Dictated By: Omkar Whitman Dictated Date: 06/06/2024 09:48 ET Assigned Physician: Omkar Whitman Reviewed and Electronically Signed By: Omkar Whitman Signed Date: 06/06/2024 10:02 ET Workstation ID: [id number] Transcribed By: Self Edit Transcribed Date: 06/06/2024 09:48 ET Hugo Stout MD IMG BI PROCEDURES Final Res ult * (ABNORMAL) Lipid panel with reflex to direct LDL (04/10/2024 8:38 AM EST) Cholesterol 207(H) 0 - 200 mg/dL LAB CHEMISTRY METHOD 04/10/2024 11:04 AM EST [facility] Triglycerides 83 0 - 150 mg/dL LAB CHEMISTRY METHOD 04/10/2024 11:04 AM EST [facility] HDL 107 >=40 mg/dL LAB CHEMISTRY METHOD 04/10/2024 11:04 AM EST [facility] LDL Calculated 83 0 - 100 mg/dL LAB CHEMISTRY METHOD 04/10/2024 11:04 AM [facility] VLDL Cholesterol Ronald 16.6 mg/dL LAB CHEMISTRY METHOD 04/10/2024 11:04 AM EST [facility] Non HDL Chol. (LDL+VLDL) 100 <145 mg/dL LAB CHEMISTRY METHOD 04/10/2024 11:04 AM [facility] Chol/HDL Ratio 1.9 0.0 - 4.4 LAB CHEMISTRY METHOD 04/10/2024 11:04 AM [facility] Blood Venous blood specimen / Unknown Venipuncture / Unknown 04/10/2024 8:38 AM EST 04/10/2024 8:38 AM EST Hugo Stout MD LAB BLOOD ORDERABLES Final Result [facility] [address] [place] [address], [place] [phone] * Annual BMP Blood Test (07/04/2023) Pathologist [facility] Annual BMP Blood Test abstracted Historical Provider HEALTH MAINTENANCE Final Result * Hepatitis C Screening (03/21/2021) Pathologist [facility] Hepatitis C Screening abstracted us Historical Provider HEALTH MAINTENANCE Final Result * Colonoscopy (09/09/2020) Colonoscopy no interpretation , abstracted Anatomical Region Laterality Modality Other us Historical Provider HEALTH MAINTENANCE Final Result from Last 3 Months or Most Recently Relevant to Health Maintenance Insurance [facility] [employer] Care Teams Handkerchief Folder Relationship Specialty Start Date End Date Hugo Stout MD [address] [place] [address] PCP - General 01/02/24
== END 2025-01-22 09:44 | disposition home or self-care (01) ==
LOC: HO.HSM 08:46
PROVIDERS: PCP Internal Medicine; Visit Provider Psychiatry & Neurology Neurology
DX: G43.709 Chronic migraine without aura, not intractable, without status migrainosus (principal)
CPT/HCPCS: 64615

== ENCOUNTER → 2025-01-22 08:45 | Outpatient (BNVA) | payer OTHER, SELFPAY | PROVIDERS: PCP Internal Medicine; Visit Provider Psychiatry & Neurology Neurology | DX: G43.709 Chronic migraine without aura, not intractable, without status migrainosus (principal) | CPT/HCPCS: 64615 ==